=== PATIENT | male | born 1945 | race Native Hawaiian/Other Pacific Islander ===

== ENCOUNTER 2018-03-08 21:34 | Emergency (ER) | payer OTHER ==
[~2018-03-08] VITALS: Ht 162.6 cm; Wt 60.8 kg
[2018-03-08 21:24] VITALS: BP 129/75; TEMP 97.8
[2018-03-08 21:47] LABS: PLATELET COUNT 263 K/uL (142-355)
[2018-03-08 21:48] LABS: POTASSIUM 4.2 mmol/L (3.6-5.2)
[2018-03-08] MEDS ORDERED: TYLENOL325 MG PO (22:24)
[2018-03-08] MEDS ORDERED: ALBUTERO1 IN (22:26)
[2018-03-08] MEDS ORDERED: AMLODIPINE BESYLATE PO (22:27)
[2018-03-08] MEDS ORDERED: CITA20TA2 PO (22:27)
[2018-03-08] MEDS ORDERED: MULTIVITAMI1 PO (22:28)
[2018-03-08] MEDS ORDERED: DOCU100C10 PO (22:28)
[2018-03-08] MEDS ORDERED: DONE5TAB PO (22:29)
[2018-03-08] MEDS ORDERED: HALO5INJ3 IM (22:30)
[2018-03-08] MEDS ORDERED: HYDR1CRE2 EX (22:33)
[2018-03-08] MEDS ORDERED: LEVETIRACET100 MG/ML PO (22:34)
[2018-03-08] MEDS ORDERED: LISI20TA11 PO (22:36)
[2018-03-08] MEDS ORDERED: ALAVERT10 M2 PO (22:37)
[2018-03-08] MEDS ORDERED: REMERON SOLTAB15 MG PO (22:38)
[2018-03-08] MEDS ORDERED: LORA1TAB17 PO (22:38)
[2018-03-08] MEDS ORDERED: OLANZAPINE10 M2 PO (22:39)
[2018-03-08] MEDS ORDERED: SCOPOLAMIN1 MG/3 DAY TD (22:40)
[2018-03-08] MEDS ORDERED: VALP250C3 PO (22:43)
[2018-03-08] MEDS ORDERED: TUSSIN DM 10-101 SYP PO (22:44)
[2018-03-09] MEDS ORDERED: LEVETIRACET100 MG/ML PO (00:28)
== END 2018-03-08 23:28 | disposition other institution (70) ==
LOC: ED 21:34 → MED/SURG 22:20 → ED 22:20
DX: E87.1 Hypo-osmolality and hyponatremia (principal); Z04.6 Encounter for general psychiatric examination, requested by authority
CPT/HCPCS: 36415; 80053; 81000; 85027; 93005; 99285